=== PATIENT | male | born 1985 | race Two or more races ===

== ENCOUNTER → 2018-04-11 | Emergency (ER) | payer OTHER ==
[~2018-04-11] VITALS: Ht 170.2 cm; Wt 89.4 kg
[~2018-04-11] MED LIST: HYDROcodone-ACET 10/325MG TAB PO ONE; LIDOCAINE 1% (LOCAL ANESTH.) PF 5ml SDV ID ONE; LIDOCAINE 1% HCL (LOCAL ANESTH.) INJ 20ML MDV ONE
[2018-04-11 16:45] VITALS: BP 115/74
== END | disposition home or self-care (01) ==
LOC: ER 14:53
DX: L02.31 Cutaneous abscess of buttock (principal); L02.416 Cutaneous abscess of left lower limb; K21.9 Gastro-esophageal reflux disease without esophagitis
CPT/HCPCS: 10060; 99283; J2001